=== PATIENT | male | born 1955 | race Caucasian/White ===

== ENCOUNTER 2021-03-26 06:40 | Emergency (ER) | payer MEDICARE, MEDICAID ==
[~2021-03-26] VITALS: Ht 177.8 cm; Wt 108.9 kg
[~2021-03-26 06:40] MED LIST: VIBRAMYCIN 100100 MG PO
[2021-03-26 08:08] LABS: ABSOLUTE BASOPHILS 0.1 thou/uL (0.0-0.2); ABSOLUTE EOSINOPHILS 0.2 thou/uL (0.0-0.7); ABSOLUTE LYMPHOCYTES 1.3 thou/uL (0.8-5.3); ABSOLUTE MONOCYTES 0.6 thou/uL (0.0-1.2); ABSOLUTE NEUTROPHILS 5.1 thou/uL (1.6-8.1); HEMATOCRIT 32.9 % (42.0-52.0); HEMOGLOBIN 10.7 gm/dL (14.0-18.0); LYMPHOCYTES 18.3 %; MCH 28.6 pg (26.0-34.0); MCHC 32.4 g/dL (28.0-37.0); MCV 88.3 fL (80.0-100.0); MONOCYTES 7.7 %; MPV 8.1 fl. (7.2-11.1); NUCLEATED RBCS 0 /100WBC; PLATELET COUNT* 268 thou/uL (150-400); RBC 3.73 mil/uL (4.50-6.00); WBC 7.3 thou/uL (4.0-11.0)
[2021-03-26 09:09] LABS: CALCIUM 8.9 mg/dL (8.5-10.1); CREATININE 0.6 mg/dL (0.6-1.3); POTASSIUM 4.6 mmol/L (3.5-5.1)
[2021-03-26 09:20] LABS: ALBUMIN 2.8 g/dL (3.4-5.0); MAGNESIUM 1.7 mg/dL (1.8-2.4); TOTAL BILIRUBIN 0.5 mg/dL (<0.1-1.0); TOTAL PROTEIN 6.8 g/dL (6.4-8.2)
[2021-03-26 11:05] VITALS: BP 116/56
--- NOTE | 2021-03-26 11:33 | EKG ---
[place] [address] ELECTROCARDIOGRAM REPORT Name: FRANDY NOLAN Room: [facility]#: [id number] Admission: 03/26/21 Attend Phys: Discharge: 03/26/21 Date of : 53 Date of Service: 03/26/21 0754 Report #: [id number] THIS REPORT FOR: //name// [facility] ED Test Date: 2021-03-26 Test Time: 07:54:13 Pat Name: FRANDY NOLAN Department: Room: Gender: Hearing Examiner: : 1955 Requested By: Parminder Prado Order Number: [id number] MD: Kristopher Egan Measurements Intervals [place] Rate: 105 P: MT: QRS: 125 QRSD: 121 T: 178 QT: 348 QTc: 461 Interpretive Statements Atrial fibrillation Ventricular premature complex Nonspecific intraventricular conduction delay Inferolateral infarct, age indeterminate No previous ECG available for comparison Electronically Signed On 03-26-2021 11:33:19 CDT by Kristopher Egan [email or web address] <ELECTRONICALLY SIGNED> By: Celeste Egan MD, [facility] 03/26/21 1133 [id number] Celeste Egan MD, [facility] /EPI
== END 2021-03-26 11:05 | disposition home or self-care (01) ==
LOC: M.ERS 06:40
PROVIDERS: Family Medicine
DX: M54.2 Cervicalgia (principal); M54.9 Dorsalgia, unspecified